=== PATIENT | female | born 1975 | race Caucasian/White ===

== ENCOUNTER 2020-01-30 13:26 | Emergency (ER) | payer OTHER ==
[2020-01-30] MEDS ORDERED: Iopamidol-370 76% 500 ML 1 ML ONE (13:40)
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
[2020-01-30] MEDS ORDERED: HYDROcodone/Acetaminophen 10/325 mg Tablet ONE (14:18)
== END 2020-01-30 14:48 | disposition home or self-care (01) ==
LOC: ERS 13:26
DX: S39.011A Strain of muscle, fascia and tendon of abdomen, initial encounter (principal); S46.912A Strain of unspecified muscle, fascia and tendon at shoulder and upper arm level, left arm, initial encounter; S66.912A Strain of unspecified muscle, fascia and tendon at wrist and hand level, left hand, initial encounter; E03.9 Hypothyroidism, unspecified; E78.5 Hyperlipidemia, unspecified; V89.2XXA Person injured in unspecified motor-vehicle accident, traffic, initial encounter
CPT/HCPCS: 74177; Q9967

== ENCOUNTER 2023-11-27 16:25 | Outpatient (CLI) | payer OTHER ==
[2023-11-27 17:04] LABS: #Basophils 0.03 10x3/uL (0.0-0.2); #Monocytes 0.59 10x3/uL (0.0-1.1); %Basophils 0.3 % (0.0-2.0); %Lymphocytes 24.1 % (18.0-47.0); %Monocytes 5.9 % (0.0-10.0); %Neutrophils 68.5 % (40.0-75.0); Hematocrit 41.1 % (34.9-44.5); Hemoglobin 14.2 g/dL (12.0-15.5); Mean Corpuscular HGB CONC 34.5 g/dL (32.0-36.0); Mean Corpuscular Hemoglobin 28.7 pg (27.0-33.0); Mean Platelet Volume 10.1 fL (7.4-10.4); Platelet Count 325 10x3/uL (150-450); RBC Distribution Width 12.9 % (11.5-14.5); Red Blood Cell (RBC) Count 4.95 10x6/uL (3.90-5.03); White Blood Cell (WBC) Count 10.1 10x3/uL (3.5-10.5)
[2023-11-27 17:23] LABS: BHCG - Serum Negative (NEGATIVE); Pregs Control Background? CLEAR/WHITE (CLR/WHITE); Pregs Control Bar Appear? YES (CONTROL BAR)
[2023-11-27 17:25] LABS: ALT (SGPT) 19 U/L (8-55); AST (SGOT) 21 U/L (5-34); Alkaline Phosphatase 99 U/L (40-110); Anion Gap 12 mmol/L (10-20); BUN (Urea Nitrogen) 22 mg/dL (7.0-18.7); Bilirubin, Total 0.6 mg/dL (0.2-1.2); Calc. Creatinine Clearance 0 mL/min (70-130); Carbon Dioxide 27 mmol/L (22-29); Chloride 98 mmol/L (98-107); Estimated GFR 72; Globulin 3.9 g/dL (2.4-3.5); Glucose 97 mg/dL (70-105); Potassium 3.3 mmol/L (3.5-5.1); Protein, Total 7.9 g/dL (6.0-8.3); Sodium 134 mmol/L (136-145)
[2023-11-27 20:02] LABS: Hemoglobin A1c 5.4 % (4.0-6.0)
== END 2023-11-27 16:26 | disposition home or self-care (01) ==
LOC: LABBT 16:25
PROVIDERS: ATTEND Surgery
DX: Z01.818 Encounter for other preprocedural examination (principal); E66.01 Morbid (severe) obesity due to excess calories
CPT/HCPCS: 80053; 83036; 84703; 85025; 93005; 93010

== ENCOUNTER 2023-11-27 16:30 | Inpatient (IN) | payer OTHER ==
[2023-12-06] MEDS ORDERED: CEFAZOLIN 2 GM VIAL ONE (06:15)
[2023-12-06] MEDS ORDERED: Sodium Chloride 0.9% 100 ML ONE (06:15)
[2023-12-06] MEDS ORDERED: EPINEPHrine 1 MG/ML VIAL ONE (06:46)
[2023-12-06] MEDS ORDERED: Bupivacaine 0.25% HCL 30 ML VIAL ONE (06:46)
[2023-12-06] MEDS ORDERED: fentaNYL PF 100 MCG/2 ML SYRINGE ONE (07:07)
[2023-12-06] MEDS ORDERED: PROPOFOL 20 ML ONE (07:08)
[2023-12-06] MEDS ORDERED: Lidocaine 1% PF 5 ML VIAL ONE (07:44)
[2023-12-06] MEDS ORDERED: Dexamethasone 20 MG/5 ML VIAL ONE (07:52)
[2023-12-06] MEDS ORDERED: Rocuronium Bromide 10 MG/ML (10ML VIAL) ONE (07:52)
[2023-12-06] MEDS ORDERED: Ondansetron PF 4 MG/2 ML Vial ONE ×2 (07:52→09:53)
[2023-12-06] MEDS ORDERED: SUGAMMADEX SODIUM 200 MG/2 ML VIAL ONE (08:41)
[2023-12-06] MEDS ORDERED: Ondansetron HCl/PF 4 MG/2 ML Vial IVP PRN (08:47)
[2023-12-06] MEDS ORDERED: Promethazine HCl 25 MG/ML VIAL IM PRN ×2 (08:47→10:24)
[2023-12-06] MEDS ORDERED: fentaNYL 50 mcg/mL 1 mL Vial ONE ×3 (09:23→10:19)
[2023-12-06] MEDS ORDERED: Ondansetron PF 4 MG/2 ML Vial IVP PRN (10:24)
[2023-12-06] MEDS ORDERED: Morphine 4 MG/ML VIAL SLOW IVP PRN (10:24)
[2023-12-06] MEDS ORDERED: Hydrocodone-Acetamin 15 ML UDCUP PO PRN (10:24)
[2023-12-06] MEDS ORDERED: Dextrose 50% Abboject 50 ML SYRINGE SLOW IVP PRN (10:24)
[2023-12-06] MEDS ORDERED: Dextrose 5% in Water 1,000 ML IV PRN (10:24)
[2023-12-06] MEDS ORDERED: hydrALAZINE 20 MG/ML VIAL SLOW IVP PRN (10:24)
[2023-12-06] MEDS ORDERED: Glucagon 1 MG/ML KIT IM PRN (10:24)
[2023-12-06] MEDS ORDERED: Ipratropium/Albuterol 3 ML NEB NEB PRN (10:24)
[2023-12-06] MEDS ORDERED: diphenhydrAMINE 50 MG/ML VIAL IVP PRN (10:24)
[2023-12-06] MEDS ORDERED: Ketorolac Tromethamine 30 MG (1 mL) VIAL ONE (10:28)
[2023-12-06] MEDS ORDERED: HYDROmorphone 0.5 MG/0.5 ML SYRINGE ONE (10:29)
[2023-12-06] MEDS: D5 1/2 NS w/20 mEq KCL 1,000 ML IV SCH (11:26)
[2023-12-06] MEDS: Acetaminophen 325 MG (10.15 ML) UDCUP PO SCH (11:50)
[2023-12-06 12:58] VITALS: BMI 49.2
[2023-12-06] MEDS: traMADol HCl 50 MG TAB PO PRN ×2 (14:14→23:49)
[2023-12-06] MEDS: Ketorolac Tromethamine 30 MG (1 mL) VIAL IVP PRN (19:29)
[2023-12-07 04:54] LABS: #Basophils Less than 0.03 10x3/uL (0.0-0.2); #Eosinphils Less than 0.03 10x3/uL (0.0-0.7); %Basophils 0.1 % (0.0-1.0); %Lymphocytes 13.5 % (21.0-51.0); %Monocytes 6.3 % (0.0-10.0); %Neutrophils 79.8 % (42.0-75.0); Hematocrit 34.8 % (36.0-47.0); Hemoglobin 11.5 g/dL (12.0-16.0); Mean Corpuscular Hemoglobin 28.5 pg (27.0-31.0); Mean Corpuscular Volume 86.4 fL (78.0-98.0); Mean Platelet Volume 10.2 fL (7.4-10.4); Platelet Count 292 10x3/uL (130-400); Red Blood Cell (RBC) Count 4.03 mill/uL (4.20-5.40)
[2023-12-07 05:30] LABS: Anion Gap 11 mmol/L (10-20); BUN (Urea Nitrogen) 16 mg/dL (7.0-18.7); Calc. Creatinine Clearance 144 mL/min (70-130); Calcium 8.5 mg/dL (7.8-10.44); Carbon Dioxide 24 mmol/L (22-29); Chloride 103 mmol/L (98-107); Estimated GFR 84; Glucose 107 mg/dL (70-105); Potassium 3.4 mmol/L (3.5-5.1); Sodium 135 mmol/L (136-145)
[2023-12-07] MEDS: Levothyroxine Sodium 100 MCG TAB PO SCH (06:16)
[2023-12-07 07:52] VITALS: BP 117/73; TEMP 97.1
[2023-12-07] MEDS: Enoxaparin 40 MG (0.4 mL) SYRINGE SC SCH (08:57)
[2023-12-07] MEDS: Pantoprazole 40 MG VIAL IVP SCH (08:57)
== END 2023-12-07 12:39 | disposition home or self-care (01) | DRG 621 ==
LOC: SURG A 12-06 05:48
PROVIDERS: ADMIT Surgery; ATTEND Surgery
PROC: 0DB64Z3 Excision of Stomach, Percutaneous Endoscopic Approach, Vertical (ICD-10-PCS; principal; 2023-12-06)
PROC: 8E0W4CZ Robotic Assisted Procedure of Trunk Region, Percutaneous Endoscopic Approach (ICD-10-PCS; 2023-12-06)
DX: E66.01 Morbid (severe) obesity due to excess calories (principal); Z68.42 Body mass index [BMI] 45.0-49.9, adult; I10 Essential (primary) hypertension; E78.5 Hyperlipidemia, unspecified; Z79.899 Other long term (current) drug therapy; Z83.3 Family history of diabetes mellitus
CPT/HCPCS: 36415; 80048; 85025; 88307; C9113; J0171; J0665; J1100; J1170; J1650; J1885; J2405; J2704; J3010; J3480; J3490